=== PATIENT | male | born 1965 | race Caucasian/White ===

== ENCOUNTER → 2016-07-06 | Outpatient (CLI) | payer OTHER ==
--- NOTE | 2016-07-06 11:42 | EST ---
DATE OF SERVICE: 07/06/2016 AGE: 50Y SEX: M HT: 69 WT: 245 lbs. Protocol Yong: X Other: Stage: Dur. of Exercise: 5 minutes *Heart Rate Blood Pressure *Rest: 86 Rest: 138/82 * *Max. Achieved: 146 Maximum BP: 198/78 85% PMHR: 144 100% PMHR: 169 *METS: 4.6 INDICATIONS: Chest pain. MEDICATIONS: Naproxen. CLINICAL INFORMATION: Chest pain and palpitations. Family history of coronary artery disease. Patient resting ECG shows sinus rhythm, rate of 86 beats per minute, DE interval of 0.16, QRS 0.[address]-T waves. Frequent PVCs are noted. Utilizing a standard Yong protocol, a symptom limited treadmill test was performed. Patient exercised for total of 5 minutes, attained a peak heart rate of 146 beats per minute, which is approximately 86% predicted maximum heart rate. Exercise test was terminated because of fatigue and shortness of breath. Patient noted to have frequent PVCs on and off, not continuously. No ST segment deviations indicative of ischemia are noted. IMPRESSION: 1. Baseline rhythm is sinus with frequent PVCs and normal ST-T waves, normal sinus rhythm, normal ST-T waves, normal DE, normal QRS. 2. Negative exercise treadmill test at 86% predicted maximum heart rate. 3. Patient has below average level of cardiopulmonary fitness as indicated by VO2 max and METs. 4. Patient noted to have frequent PVCs ( ) could be due to poor physical conditioning versus underlying cardiomyopathy needs to be ruled out. An echocardiogram may be considered if clinically indicated.
== END | disposition home or self-care (01) ==
LOC: RADNMMAIN 10:36
PROVIDERS: ATTEND Family Medicine
DX: I49.3 Ventricular premature depolarization (principal)
CPT/HCPCS: 93017

== ENCOUNTER → 2016-07-13 | Outpatient (CLI) | payer OTHER ==
--- NOTE | 2016-07-16 10:28 | ECHOF ---
Referral Reason:R00.2 palpitations MEASUREMENTS -------- HEIGHT: 175.3 cm WEIGHT: 106.6 kg BP: IVSd: 1.2 cm (0.6 - 1.1) LVIDd: 4.0 cm (3.9 - 5.3) LVPWd: 1.1 cm (0.6 - 1.1) IVSs: 1.8 cm LVIDs: 2.3 cm LVPWs: 1.9 cm Ao Diam: 3.7 cm (2.0 - 3.7) AV Cusp: 2.3 cm (1.5 - 2.6) LA Diam: 2.5 cm (2.7 - 3.8) MV EXCURSION: 18.742 mm (> 18.000) MV EF SLOPE: 106 mm/s (70 - 150) EPSS: 0.2 cm MV E Davonte: 0.86 m/s MV DecT: 246 ms MV A Davonte: 0.52 m/s MV E/A Ratio: 1.64 RAP: 5.00 mmHg RVSP: 10.17 mmHg FINDINGS -------- Sinus rhythm. This was a technically adequate study. There is mild concentric left ventricular hypertrophy. Overall left ventricular systolic function is normal with, an EF between 55 - 60 %. The right ventricle is normal in size and function. The left atrium is normal in size. The right atrium is normal in size. The aortic valve is trileaflet, and appears structurally normal. No aortic stenosis or regurgitation. There is trace mitral regurgitation. Trace tricuspid regurgitation present. The right ventricular systolic pressure, as measured by Doppler, is 10.17mmHg. Pulmonic valve appears structurally normal. The aortic root, ascending aorta and aortic arch are normal. The pericardium is normal. CONCLUSIONS -------- 1. Sinus rhythm. 2. Trace tricuspid regurgitation present. 3. The right ventricular systolic pressure, as measured by Doppler, is 10.17mmHg. 4. Pulmonic valve appears structurally normal. 5. The aortic root, ascending aorta and aortic arch are normal. 6. The pericardium is normal. 7. This was a technically adequate study. 8. There is mild concentric left ventricular hypertrophy. 9. Overall left ventricular systolic function is normal with, an EF between 55 - 60 %. 10. The right ventricle is normal in size and function. 11. The left atrium is normal in size. 12. The right atrium is normal in size. 13. The aortic valve is trileaflet, and appears structurally normal. No aortic stenosis or regurgitation. 14. There is trace mitral regurgitation. TEA ROOM MANAGER: Ligia Cornell RDCS
== END | disposition home or self-care (01) ==
LOC: RADECHMAIN 12:51
PROVIDERS: ATTEND Family Medicine
DX: I08.1 Rheumatic disorders of both mitral and tricuspid valves (principal)
CPT/HCPCS: 93306

== ENCOUNTER → 2018-02-13 | Outpatient (CLI) | payer OTHER ==
--- NOTE | 2018-02-13 17:03 | XR ---
EXAMINATION TYPE: XR chest 2V DATE OF EXAM: 02/13/2018 COMPARISON: NONE HISTORY: Chest pain TECHNIQUE: Frontal and lateral views of the chest are obtained. FINDINGS: Heart and mediastinum are normal. Lungs are clear. Diaphragm is normal. Bony thorax appear s normal. There is spurring in the thoracic spine. IMPRESSION: Normal chest
== END | disposition home or self-care (01) ==
LOC: RADXRMAIN 16:36
PROVIDERS: ATTEND Family Medicine
DX: R07.89 Other chest pain (principal)
CPT/HCPCS: 71046

== ENCOUNTER 2018-07-14 06:54 | Day surgery (SDC) | payer OTHER ==
[2018-07-09 12:17] VITALS: BMI 35.4
--- NOTE | 2018-07-13 15:21 | P.GSHP ---
History of Present Illness H&P Date: 07/14/18 CHIEF COMPLAINT: Colon screen HISTORY OF PRESENT ILLNESS: The patient is a 52-year-old male who presents for colon screen. Lower endoscopy was offered for further evaluation and management. PAST MEDICAL HISTORY: Please see list. PAST SURGICAL HISTORY: Please see list. MEDICATIONS: Please see list. ALLERGIES: Please see list. SOCIAL HISTORY: No illicit drug use FAMILY HISTORY: No reports of Crohn disease or ulcerative colitis. REVIEW OF ORGAN SYSTEMS: CONSTITUTIONAL: No reports of fevers or chills. PHYSICAL EXAM: VITAL SIGNS: Stable GENERAL: Well-developed pleasant in no acute distress. HEENT: No scleral icterus. Extraocular movements grossly intact. Moist buccal mucosa. NECK: Supple without lymphadenopathy. CHEST: Unlabored respirations. Equal bilateral excursions. CARDIOVASCULAR: Regular rate and rhythm. Distal 2+ pulses. ABDOMEN: Soft, nontender, nondistended. MUSCULOSKELETAL: No clubbing, cyanosis, or edema. ASSESSMENT: 1. Colon screen. PLAN: 1. 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 HX KIDNEY STONES. HX RUPTURED TENDON AFTER TAKING CIPRO History of Any Multi-Drug Resistant Organisms: None Reported Past Surgical History: No Surgical Hx Reported Past Anesthesia/Blood Transfusion Reactions: No Reported Reaction Smoking Status: Never smoker - Past Family History Father Family Medical History: Deep Vein Thrombosis (DVT) Mother Family Medical History: Deep Vein Thrombosis (DVT) Medications and Allergies Home Medications Medication Instructions Recorded Confirmed Type Aspirin EC [Ecotrin Low Dose] 81 mg PO DAILY 07/09/18 07/09/18 History Allergies Allergy/AdvReac Type Severity Reaction Status Date / Time ciprofloxacin [From Cipro] AdvReac RUPTURED Verified 07/09/18 12:13 ACHILLES TENDON
[~2018-07-14 06:54] MED LIST: LACTATED RINGERS 1,000 ML IV SCH; LIDOCAINE 1% 20 ML VIAL (10MG/ML) FOR IV START INTRADERMA PRN
[2018-07-14 07:10] VITALS: TEMP 98
[2018-07-14] MEDS ORDERED: LACTATED RINGERS 1,000 ML IV ONE ×2 (07:23)
[2018-07-14] MEDS ORDERED: PROPOFOL 10 MG/ML 20 ML VIAL IV ONE (07:35)
--- NOTE | 2018-07-14 08:27 | P.PCN ---
Date of Procedure: 07/14/18 Description of Procedure: PREOPERATIVE DIAGNOSIS: Colonoscopy screening. Family history colon polyps POSTOPERATIVE DIAGNOSIS: Colonoscopy screening. Family history colon polyps OPERATION: Colonoscopy to the ileocecal valve and appendiceal orifice. SURGEON: Lilliana Wilkes MD. ANESTHESIA: MAC. INDICATIONS: The patient is a 52-year-old male who presents for his first colonoscopy screening. Benefits and risks were described and informed consent was obtained. DESCRIPTION OF PROCEDURE: The patient had undergone Gatorade, MiraLAX and Dulcolax prep. He had been brought into the operating room and laid in the left lateral decubitus position. The prostate was smooth and without abnormalities. After adequate intravenous sedation, the rectum was examined with 2% lidocaine jelly. No external hemorrhoids were encountered. The rectal tone was within normal limits. No lesions were palpated in the rectal vault. An Olympus colonoscope was advanced until the ileocecal valve and appendiceal orifice were clearly viewed. The prep was excellent with clear visualization of the mucosal folds. The scope was removed with visualization of each mucosal fold. No scattered diverticulosis was encountered. No colonic polyps were found. No evidence of focal colitis was found. Retroflexion of the scope demonstrated no internal hemorrhoids. The colon was desufflated. The patient had tolerated the procedure well. Withdrawal time was over 6 minutes. FINDINGS: No internal hemorrhoids No external prolapsed hemorrhoids. No arteriovenous malformations. No adenomatous polyps. No sigmoid diverticulosis No focal colitis. RECOMMENDATIONS: Family history presents as high risk screening, repeat colonoscopy 5 years, 2023 Plan - Discharge Summary New Discharge Prescriptions: No Action Aspirin EC [Ecotrin Low Dose] 81 mg PO DAILY Discharge Medication List Aspirin EC [Ecotrin Low Dose] 81 mg PO DAILY 07/09/18 [History]
[2018-07-14 08:43] VITALS: BP 122/69; PULSE 63; RESP 16
== END 2018-07-14 09:05 | disposition home or self-care (01) ==
LOC: ORWHC2ENDO 06:54
PROVIDERS: ATTEND Surgery Plastic and Reconstructive Surgery
DX: Z12.11 Encounter for screening for malignant neoplasm of colon (principal); Z83.71 Family history of colonic polyps; G51.0 Bell's palsy; Z79.82 Long term (current) use of aspirin; Z88.3 Allergy status to other anti-infective agents
CPT/HCPCS: J2704; G0121

== ENCOUNTER → 2018-10-30 | Outpatient (CLI) | payer OTHER ==
--- NOTE | 2018-10-30 14:37 | XR ---
Abdomen HISTORY: Pain Frontal view the abdomen on 2 images No comparisons Lung bases are not included on exam. Multiple calcifications are present within the pelvis which may be vascular. There may be a spinal curvature. No evident pneumoperitoneum or bowel obstruction. IMPRESSION: Exam somewhat limited as described. Indeterminate calcifications in the pelvis.
== END | disposition home or self-care (01) ==
LOC: RADXRMAIN 12:44
PROVIDERS: ATTEND Physician Assistant
DX: R93.41 Abnormal radiologic findings on diagnostic imaging of renal pelvis, ureter, or bladder (principal); R10.9 Unspecified abdominal pain
CPT/HCPCS: 74018

== ENCOUNTER → 2018-11-20 | Outpatient (CLI) | payer OTHER ==
--- NOTE | 2018-11-20 15:38 | MR ---
EXAMINATION TYPE: MR brain wo/w con DATE OF EXAM: 11/20/2018 COMPARISON: None HISTORY: Facial numbness CONTRAST: Performed utilizing 11.5 mL intravenous Gadavist gadolinium contrast. TECHNIQUE: Multiplanar, multiecho imaging on a 3.0 Tatiana magnet is performed through the brain. Stud y is performed within 24 hours of arrival to the hospital. The craniovertebral junction is normal. The pituitary is normal. Diffusion-weighted imaging is performed. No abnormal hyperintensity is present to suggest an acute i ntracranial infarct or acute ischemic change. There are a few scattered punctate areas of hyperintensity on T2 and Inversion Recovery weighted sequ ences which are non-specific but can be related to microvascular ischemic changes. These include antonina ventricular and subcortical white matter. This is slightly greater than expected for the patient age. These number approximately 6 on the right approximately 10 on the left. The largest subcortical white matter the trilobar region on the right measures 0.9 x 0.4 cm. Series 5 01 image 17. Ventricles and sulci are appropriate for the patient age. There is minimal mucosal thickening diffusely through the maxillary sinuses. Mild mucosal thickening is within ethmoid air cells. Mastoid air cells are clear. No suspicious enhancement is evident. IMPRESSIONS: 1. Multiple scattered punctate white matter changes greater than expected for the patient age. Differ ential diagnosis could include, but is not limited to, multiple sclerosis, microvascular ischemic kian nge, migraine headaches, vasculitis.
== END | disposition home or self-care (01) ==
LOC: RADMRIMAIN 13:01
PROVIDERS: ATTEND Family Medicine
DX: R90.89 Other abnormal findings on diagnostic imaging of central nervous system (principal); R29.810 Facial weakness
CPT/HCPCS: 70553; A9585

== ENCOUNTER → 2021-06-13 | Outpatient (CLI) | payer OTHER ==
--- NOTE | 2021-07-10 14:42 | EM ---
21 Day Event monitor note: Patient wore an event monitor for 21 days from 06/13/2021 until 07/02/2021. Findings: Patient's baseline heart rate was normal sinus rhythm. There were no signficant atrial fibrillation, atrial flutter, or ventricular tachycardia episodes. There were no significant pauses greater than 2 seconds. There were a total of 71 automatically captured and patient activated events. There were approximately 25 patient activated events, symptoms not specified which predominantly corresponded with sinus rhythm and twice with PACs. There were rare PACs, 2 episodes of asymptomatic 6 and 8 beat brief SVT. There were no PVCs noted. Conclusions: 21 day Holter monitor showing normal sinus rhythm and rare PACs and 2 episodes of brief 6-8 beats of SVT. Patient activated events not specified predominantly corresponding with sinus rhythm and occasionally with PACs. MTDD
== END | disposition home or self-care (01) ==
LOC: RADECHMAIN 11:35
PROVIDERS: ATTEND Family Medicine
DX: R00.2 Palpitations (principal)
CPT/HCPCS: 93270